=== PATIENT | female | born 1950 | race Caucasian/White ===

== ENCOUNTER 2018-10-19 17:41 | Inpatient (IN) ==
--- NOTE | 2018-10-19 18:54 | ED ---
HPI General Chief Complaint: Psychiatric Symptoms Stated Complaint: psych eval/flagler Time Seen by Provider: 10/19/18 18:51 Source: patient Mode of arrival: ambulatory Limitations: no limitations History of Present Illness HPI Narrative: 68-year-old female with PMH of dementia presents the ED under Reed act for psychiatric evaluation. According to the Reed act the patient has become more confused and violent recently. There was an incident in the home and the called to have the patient Reed acted. On presentation the patient cannot remember the events of the day. She denies suicidal or homicidal ideation. She denies any somatic complaints. She endorses a history of depression for "many many years." She states that her helps her with her medications. She is a current smoker. She denies alcohol or illicit drug use. Related Data Home Medications Medication Instructions Recorded Confirmed levothyroxine 88 mcg PO DAILY 10/19/18 10/19/18 lisinopril 10 mg PO DAILY 10/19/18 10/19/18 pantoprazole 40 mg PO DAILY 10/19/18 10/19/18 paroxetine HCl 40 mg PO DAILY 10/19/18 10/19/18 Allergies Allergy/AdvReac Type Severity Reaction Status Date / Time No Known Allergies Allergy Verified 10/19/18 18:42 Review of Systems ROS: all other systems reviewed are negative [facility] Medical History Medical History Anxiety (Acute) Depression (Acute) H/O: hysterectomy (Acute) Social History Social History Substance History: No History of Abuse Second Hand Smoke Exposure: Yes Smoking Status: Current every day smoker Tobacco Type: Cigarettes How Often Do You Have a Drink Containing Alcohol: Monthly or less Recent Travel in [facility] within the Last 8 Weeks: No Recent Out of Country Travel within the Last 8 Weeks: No Immunization History Tetanus Immunization: <5 Years Exam Narrative Exam Narrative: GENERAL: Well-nourished, well-developed white female no acute distress. SKIN: Focused skin assessment warm/dry. HEAD: Atraumatic. Normocephalic. EYES: Pupils equal and round. No scleral icterus. No injection or drainage. ENT: No nasal bleeding or discharge. Mucous membranes pink and moist. NECK: Trachea midline. No JVD. CARDIOVASCULAR: Regular rate and rhythm. No murmur appreciated. RESPIRATORY: No accessory muscle use. Clear to auscultation. Breath sounds equal bilaterally. GASTROINTESTINAL: Abdomen soft, non-tender, nondistended. Hepatic and splenic margins not palpable. MUSCULOSKELETAL: No obvious deformities. No clubbing. No cyanosis. No edema. NEUROLOGICAL: Awake and alert. No obvious cranial nerve deficits. Motor grossly within normal limits. Normal speech. PSYCHIATRIC: Calm and cooperative. Course Initial Documented Vital Signs Temperature 97.4 F L 10/19/18 17:58 Pulse Rate 75 10/19/18 17:58 Respiratory Rate 18 10/19/18 17:58 Blood Pressure 131/72 10/19/18 17:58 Pulse Oximetry 98 10/19/18 17:58 Last Documented Vital Signs Temperature 98.6 F 10/19/18 18:41 Pulse Rate 76 10/19/18 18:41 Respiratory Rate 18 10/19/18 18:41 Blood Pressure 129/77 10/19/18 18:41 Pulse Oximetry 100 10/19/18 18:[address] [facility] Narrative Medical decision making narrative: 68-year-old female with PMH of dementia presents the ED under Reed act for psychiatric evaluation. According to the Reed act the patient has become more confused and violent recently. There was an incident in the home and the called to have the patient Reed acted. On presentation the patient cannot remember the events of the day. She denies suicidal or homicidal ideation. She denies any somatic complaints. Vitals reviewed. Physical exams unremarkable. Lab work without any acute abnormalities. Tox screen positive for barbiturates and benzodiazepines. The patient is medically cleared for psychiatric evaluation. Medical Screen Exam Complete: Yes Emergency Medical Condition: Yes Differential Diagnosis Differential Diagnosis: Adjustment disorder versus anxiety versus bipolar versus depression versus dementia versus electrolyte disorder versus mood disorder versus other Lab Data Result diagrams: 10/19/18 18:05 10/19/18 18:05 Lab Results 10/19/18 10/19/18 10/19/18 Range/Units 18:05 18:05 19:20 WBC 8.5 (4.0-11.0) th/mm3 RBC 5.79 H (4.00-5.30) mil/mm3 Hgb 13.6 (11.6-15.3) gm/dL Hct 43.7 (35.0-46.0) % MCV 75.4 L (80.0-100.0) fL MCH 23.5 L (27.0-34.0) pg MCHC 31.1 L (32.0-36.0) % RDW 19.6 H (11.6-17.2) % Plt Count 452 H (150-450) th/mm3 MPV 8.2 (7.0-11.0) fL Neut % (Auto) 54.3 (16.0-70.0) % Lymph % (Auto) 33.4 (9.0-44.0) % [place] % (Auto) 7.6 (0.0-8.0) % Eos % (Auto) 3.5 (0.0-4.0) % Baso % (Auto) 1.2 (0.0-2.0) % Neut # (Auto) 4.6 (1.8-7.7) th/mm3 Lymph # (Auto) 2.8 (1.0-4.8) th/mm3 [place] # (Auto) 0.6 (0.0-0.9) th/mm3 Eos # (Auto) 0.3 (0.0-0.4) th/mm3 Baso # (Auto) 0.1 (0.0-0.2) th/mm3 WBC Differential . Differential Comment Auto diff final Sodium 136 (136-145) meq/L Potassium 4.2 (3.5-5.1) meq/L Chloride 105 (98-107) meq/L Carbon Dioxide 25.3 (21.0-32.0) meq/L Anion Gap 6 (5-15) meq/L BUN 7 (7-18) mg/dL Creatinine 0.80 (0.50-1.00) mg/dL Estimated GFR 72 L (>89) mL/min Random Glucose 124 H (74-106) mg/dL Calcium 9.7 (8.5-10.1) mg/dL Magnesium 2.3 (1.5-2.5) mg/dL Total Bilirubin 0.2 (0.2-1.0) mg/dL AST 24 (15-37) U/L ALT 31 (10-53) U/L Alkaline Phosphatase 135 H (45-117) U/L Total Protein 8.2 (6.4-8.2) g/dL Albumin 4.1 (3.4-5.0) g/dL TSH 2.920 (0.358-3.740) uIU/mL Urine Color (Yellw/Straw) Urine Clarity (Clear) Urine pH (5.0-8.5) Ur Specific [place] (1.002-1.035) Urine Protein (Neg-Trace) mg/dL Urine Glucose (UA) (Negative) mg/dL Urine Ketones (Negative) mg/dL Urine Occult Blood (Negative) Urine Nitrate (Negative) Urine Bilirubin (Negative) Urine Urobilinogen (Less than 2) mg/dL Ur Leukocyte Esterase (Negative) Urine WBC (0-5) /hpf Ur Squamous Epith Cells (0-5) /hpf Urine Bacteria (None) /hpf Urine Mucus (Occasional) /lpf Micro UA Comment Ur Microscopic Review Urine Culture Comments Urine Opiates Screen Neg (Neg) Ur Barbiturates Screen Pos H (Neg) Ur Amphetamines Screen Neg (Neg) U Benzodiazepines Scrn Pos H (Neg) Urine Cocaine Screen Neg (Neg) U Cannabinoids Screen Neg (Neg) Serum Alcohol Less than 3 (0-5) mg/dL 10/19/18 Range/Units 19:20 WBC (4.0-11.0) th/mm3 RBC (4.00-5.30) mil/mm3 Hgb (11.6-15.3) gm/dL Hct (35.0-46.0) % MCV (80.0-100.0) fL MCH (27.0-34.0) pg MCHC (32.0-36.0) % RDW (11.6-17.2) % Plt Count (150-450) th/mm3 MPV (7.0-11.0) fL Neut % (Auto) (16.0-70.0) % Lymph % (Auto) (9.0-44.0) % [place] % (Auto) (0.0-8.0) % Eos % (Auto) (0.0-4.0) % Baso % (Auto) (0.0-2.0) % Neut # (Auto) (1.8-7.7) th/mm3 Lymph # (Auto) (1.0-4.8) th/mm3 [place] # (Auto) (0.0-0.9) th/mm3 Eos # (Auto) (0.0-0.4) th/mm3 Baso # (Auto) (0.0-0.2) th/mm3 WBC Differential Differential Comment Sodium (136-145) meq/L Potassium (3.5-5.1) meq/L Chloride (98-107) meq/L Carbon Dioxide (21.0-32.0) meq/L Anion Gap (5-15) meq/L BUN (7-18) mg/dL Creatinine (0.50-1.00) mg/dL Estimated GFR (>89) mL/min Random Glucose (74-106) mg/dL Calcium (8.5-10.1) mg/dL Magnesium (1.5-2.5) mg/dL Total Bilirubin (0.2-1.0) mg/dL AST (15-37) U/L ALT (10-53) U/L Alkaline Phosphatase (45-117) U/L Total Protein (6.4-8.2) g/dL Albumin (3.4-5.0) g/dL TSH (0.358-3.740) uIU/mL Urine Color Straw (Yellw/Straw) Urine Clarity Clear (Clear) Urine pH 6.0 (5.0-8.5) Ur Specific [place] 1.011 (1.002-1.035) Urine Protein Negative (Neg-Trace) mg/dL Urine Glucose (UA) Negative (Negative) mg/dL Urine Ketones Negative (Negative) mg/dL Urine Occult Blood Negative (Negative) Urine Nitrate Negative (Negative) Urine Bilirubin Negative (Negative) Urine Urobilinogen Less than 2 (Less than 2) mg/dL Ur Leukocyte Esterase Trace H (Negative) Urine WBC 2 (0-5) /hpf Ur Squamous Epith Cells <1 (0-5) /hpf Urine Bacteria Rare H (None) /hpf Urine Mucus Few H (Occasional) /lpf Micro UA Comment Culture not ind Ur Microscopic Review Not Reportable Urine Culture Comments Culture not ind Urine Opiates Screen (Neg) Ur Barbiturates Screen (Neg) Ur Amphetamines Screen (Neg) U Benzodiazepines Scrn (Neg) Urine Cocaine Screen (Neg) U Cannabinoids Screen (Neg) Serum Alcohol (0-5) mg/dL Discharge Plan Discharge Disposition Patient Disposition: 30 Still Patient Physicians Team ED Provider: Jorge Saavedra ED Midlevel Provider: Sakshi Koo Primary Care Provider: Dennis Kaur Other Providers: [facility],Insurance Rxs /Orders / Referrals /Forms Prescriptions: No Action levothyroxine 88 mcg Tablet 88 mcg PO DAILY RF: 0 pantoprazole 40 mg Tablet,Delayed Release (Dr/Ec) 40 mg PO DAILY RF: 0 lisinopril 10 mg Tablet 10 mg PO DAILY RF: 0 paroxetine HCl 40 mg Tablet 40 mg PO DAILY RF: 0 Discharge Interventions Interventions: Vital Signs Last Done: 10/19/18 18:41 Status ED Status: Medically Cleared
[2018-10-19 19:14] LABS: Baso # (Auto) 0.1 th/mm3 (0.0-0.2); Baso % (Auto) 1.2 % (0.0-2.0); Eos # (Auto) 0.3 th/mm3 (0.0-0.4); Eos % (Auto) 3.5 % (0.0-4.0); Hematocrit 43.7 % (35.0-46.0); Hemoglobin 13.6 gm/dL (11.6-15.3); Lymph # (Auto) 2.8 th/mm3 (1.0-4.8); Lymph % (Auto) 33.4 % (9.0-44.0); Mean Corpuscular HGB Conc 31.1 % (32.0-36.0); Mean Corpuscular Hemoglobin 23.5 pg (27.0-34.0); Mean Corpuscular Volume 75.4 fL (80.0-100.0); Mean Platelet Volume 8.2 fL (7.0-11.0); Mono # (Auto) 0.6 th/mm3 (0.0-0.9); Mono % (Auto) 7.6 % (0.0-8.0); Neut # (Auto) 4.6 th/mm3 (1.8-7.7); Neut % (Auto) 54.3 % (16.0-70.0); Platelet Count 452 th/mm3 (150-450); Red Blood Count 5.79 mil/mm3 (4.00-5.30); Red Cell Distribution Width 19.6 % (11.6-17.2); White Blood Count 8.5 th/mm3 (4.0-11.0)
[2018-10-19 20:09] LABS: Alanine Aminotransferase 31 U/L (10-53); Albumin 4.1 g/dL (3.4-5.0); Anion Gap 6 meq/L (5-15); Aspartate Aminotransferase 24 U/L (15-37); Blood Urea Nitrogen 7 mg/dL (7-18); Calcium 9.7 mg/dL (8.5-10.1); Carbon Dioxide 25.3 meq/L (21.0-32.0); Chloride 105 meq/L (98-107); Glomerular Filtration Rate 72 mL/min (>89); Glucose,Random 124 mg/dL (74-106); Magnesium 2.3 mg/dL (1.5-2.5); Potassium 4.2 meq/L (3.5-5.1); Sodium 136 meq/L (136-145)
[2018-10-19 20:10] LABS: Bacteria,Urine Rare /hpf; Bilirubin,Urine Negative (Negative); Clarity,Urine Clear (Clear); Color,Urine Straw (Yellw/Straw); Glucose,Urine (UA) Negative (Negative); Leukocyte Esterase,Urine Trace (Negative); Mucus,Urine Few /lpf (Occasional); Nitrite,Urine Negative (Negative); Specific Gravity,Urine 1.011 (1.002-1.035); Squamous Epithelial Cell,Urine <1 /hpf (0-5)
[2018-10-19 20:18] LABS: Amphetamine Screen,Urine Neg (Neg); Barbiturate Screen,Urine Pos (Neg); Cannabinoid Screen,Urine Neg (Neg); Cocaine Screen,Urine Neg (Neg)
[2018-10-19 20:19] LABS: Alkaline Phosphatase 135 U/L (45-117); Total Protein 8.2 g/dL (6.4-8.2)
[2018-10-19 20:21] LABS: Opiate Screen,Urine Neg (Neg)
[2018-10-19] MEDS ORDERED: Aluminum/Magnesium/Simethacone Susp 30 ML UDC PO PRN ×2 (23:01→23:02)
[2018-10-19] MEDS ORDERED: LORazepam 0.5 MG Tablet PO PRN (23:02)
[2018-10-20] MEDS ORDERED: glipiZIDE 10 MG Tablet PO SCH (08:00)
[2018-10-20 11:08] LABS: Calcium 8.8 mg/dL (8.5-10.1); Carbon Dioxide 29.2 meq/L (21.0-32.0); Potassium 4.4 meq/L (3.5-5.1)
[2018-10-20 11:12] LABS: Chol/HDL Ratio 5.52 Ratio; HDL Cholesterol 29.3 mg/dL (40.0-60.0)
[2018-10-20 11:45] LABS: Hemoglobin A1c 7.7 % (4.3-6.0)
--- NOTE | 2018-10-20 15:00 | P.HPPSY ---
Provisional Diagnosis Admission Date: October 19, 2018 21:59 [place] I.: Alzheimer's disease with early onset with behavioral disturbances Competence Certification of Person's Competence To Provide Express and Informed Consent I have personally examined Staci Osei, a person being served at [facility] on, October 20, 2018 1451. Express and informed consent means consent voluntarily given in writing, by a competent person, after sufficient explanation and disclosure of the subject matter involved to enable the person to make a knowing and willful decision without any element of force, fraud, deceit, duress, or other form of constraint or coercion. This person is 18 years of age or older, is not now known to be incompetent to consent to treatment with a guardian advocate, and does not have a health care surrogate or proxy currently making medical treatment decisions. I have found this person to be one of the following: [] Competent to provide express and informed consent, as defined above, for voluntary admission to this facility and is competent to provide express and informed consent for treatment. He/she has the consistent capacity to make well reasoned, willful, and knowing decisions concerning his or her medical or mental health treatment. The person fully and consistently understands the purpose of the admission for examination/placement and is fully capable of personally exercising all rights assured [place]xxx] Incompetent to provide express and informed consent to voluntary admission , and this is incompetent to provide express and informed consent to treatment. The person must be transferred to involuntary status and a petition for a guardian advocate filed with the Circuit Court. [] Refusing to provide express and informed consent to voluntary admission but is competent to provide express and informed consent for treatment. The person must be discharged or transferred to involuntary status. Form shall be completed within 24 hours of a person's arrival at the receiving facility and filed in the clinical record of each person: 1. Admitted on a voluntary basis 2. Permitted to provide express and informed consent to his/her own treatment 3. Allowed to transfer from involuntary to voluntary status 4. Prior to permitting a person to consent to his or her own treatment after having been previously found incompetent to consent to treatment. History of Present Illness Capacity: Lacks capacity History of Present Illness: Patient is 68-year-old white female comes for under Reed act to the [facility]'s office dated 10/19/2018 at 1552 hrs. The document reviewed essentially stating female has dementia that is progressing rapidly which is causing anger or frustration that leads to her physically acting out towards her and nurse/family female also has depression and anxiety with that she does not know if when she is taken medication or not. Patient was seen screen in the ED urine toxicology positive for barbiturates and benzodiazepines. At the present time patient sitting quietly in her room nurse Rylee and medical student Parveen present throughout session patient is calm the somewhat withdrawn from us with very poor eye contact she is diffusely confused as to place time and situation though she knows she is in a hospital but does not know where. She does not know of the day the date or the year. She states she lives with her and appears she does not have any children with her does have an adult daughter. She states she feels depressed. Though she does denies suicidality voices or visions at this time. Denies alcohol or drug use. Does acknowledge seeing a psychiatrist in the past but is not seeing one now. She does acknowledge some vague past inpatient psychiatric care. At this time patient meets criteria for further inpatient psychiatric hospitalization under the Reed act older first opinion request second opinion. Therefore she does not have capacity I will ask for healthcare surrogate and guardian advocate. We will continue medications as per the med reconciliation. We will have a hospice consult with us. We need to meet with patient's family to discuss possible placement issues. - Inpatient Certification I certify that the inpatient services were ordered in accordance with Medicare regulations governing the order. This includes certification that hospital inpatient services are reasonable and necessary and in the case of services not specified as inpatient-only under 42 CFR 419.22(n), that they are appropriately provided as inpatient services in accordance to with the 2-midnight benchmark under 43 CFR 412.3(e) I certify that inpatient psychiatric hospital services are medically necessary. Evaluation and treatment and/or diagnostic testing are expected to improve the patient's condition. The patient needs on a daily basis, active treatment furnished directly by or requiring the supervision of inpatient psychiatric facility personnel. Estimated Total Length of Stay (Days): 7 Plans for Post Hospital Care: Not yet determined Review of Systems unobtainable due to mental status PMFSH - History History Provided By: Patient - Medical / Surgical Hx Neg / Unobtainable Medical Problems Denied: Unable to Obtain - Medical History Medical History: Medical History (Last Reviewed 10/20/18 @ 14:56 by Maximus Medrano MD) Anxiety Depression H/O: hysterectomy - Social History I have reviewed the patient's Social History: Yes - Tobacco History Second Hand Smoke Exposure: Yes Tobacco Use In Past 30 Days: Yes Smoking Status: Current every day smoker Tobacco Type: Cigarettes - Alcohol History How Often Do You Have a Drink Containing Alcohol: Monthly or less - Substance Use History Substance History: No History of Abuse - Travel History Recent Travel in the [place] Within the Last 8 Weeks: No Recent Travel Out of the Country Within the Last 8 Weeks: No - Immunization History Tetanus Immunization: <5 Years Hx Influenza Vaccine This Season: Yes Quality Measures - Psychiatric History Psychological trauma history: Patient denies though there may be some difficulty with her confusion Violence risk to others in the last 6 months: Patient showed increased violence at home against her and others Violence risk to self in the last 6 months: Patient denies suicidality - Substance Abuse History Drug or alcohol use in the past 12 months: Patient denies - Patient Strengths Patient's strengths (minimum of 2): Patient verbal cooperative able [place] healthcare Medications and Allergies Active Medications: Active Medications Acetaminophen (Tylenol) 650 mg PO Q4H PRN PRN Reason: PAIN 1-5/ TEMP > 101 Al Hydrox/Mg Hydrox/Simethicone (Mag-Al Plus Susp Liq) 30 ml PO Q6H PRN PRN Reason: DYSPEPSIA Al Hydrox/Mg Hydrox/Simethicone (Mag-Al Plus Susp Liq) 30 ml PO Q6H PRN PRN Reason: DYSPEPSIA Al Hydroxide/Mg Hydroxide (Milk Of Magnesia Liq) 30 ml PO Q24H PRN PRN Reason: CONSTIPATION Al Hydroxide/Mg Hydroxide (Milk Of Magnesia Liq) 30 ml PO Q12H PRN PRN Reason: Mild Constipation Diphenhydramine HCl (Benadryl) 50 mg PO HS PRN PRN Reason: INSOMNIA Fluconazole (Diflucan) 100 mg PO DAILY NICK Glipizide (Glucotrol) 10 mg PO BIDAC NICK Last Admin: 10/20/18 08:35 Dose: 10 mg Glipizide (Glucotrol) 10 mg PO BID NICK Hydroxyzine HCl (Atarax) 50 mg PO Q6H PRN PRN Reason: ANXIETY Metformin HCl (Glucophage) 500 mg PO TID [facility] Last Admin: 10/20/18 13:17 Dose: 500 mg Metformin HCl (Glucophage) 500 mg PO TID [facility] Nicotine (Habitrol 21 Mg Patch.24 Hr) 1 patch T-DERMAL DAILY [facility] Last Admin: 10/20/18 08:35 Dose: 1 patch Non-Formulary Medication (Alprazolam [Xanax]) 0.5 mg PO TID PRN PRN Reason: Anxiety Pantoprazole Sodium (Protonix) 40 mg PO DAILY [facility] Last Admin: 10/20/18 08:35 Dose: 40 mg Pantoprazole Sodium (Protonix) 40 mg PO DAILY [facility] Patch Removal (Remove Old Patch) 1 each T-DERMAL HS [facility] Last Admin: 10/19/18 23:00 Dose: 1 each Allergies Allergy/AdvReac Type Severity Reaction Status Date / Time No Known Allergies Allergy Verified 10/19/18 18:42 Home Medications Medication Instructions Recorded Confirmed Type alprazolam [Xanax] 0.5 mg PO TID PRN 10/19/18 10/19/18 History fluconazole [Diflucan] 100 mg PO DAILY MDD 10 DAYS 10/19/18 10/19/18 History glipizide 10 mg PO BID 10/19/18 10/19/18 History metformin 500 mg PO TID 10/19/18 10/19/18 History pantoprazole 40 mg PO DAILY 10/19/18 10/19/18 History Results - Labs CBC & Chem 7: 10/19/18 18:05 10/20/18 08:39 Labs: Laboratory Results - last 24 hr 10/19/18 10/19/18 10/19/18 18:05 18:05 19:20 WBC 8.5 RBC 5.79 H Hgb 13.6 Hct 43.7 MCV 75.4 L MCH 23.5 L MCHC 31.1 L RDW 19.6 H Plt Count 452 H MPV 8.2 Neut % (Auto) 54.3 Lymph % (Auto) 33.4 [place] % (Auto) 7.6 Eos % (Auto) 3.5 Baso % (Auto) 1.2 Neut # (Auto) 4.6 Lymph # (Auto) 2.8 [place] # (Auto) 0.6 Eos # (Auto) 0.3 Baso # (Auto) 0.1 WBC Differential . Differential Comment Auto diff final Sodium 136 Potassium 4.2 Chloride 105 Carbon Dioxide 25.3 Anion Gap 6 BUN 7 Creatinine 0.80 Estimated GFR 72 L Random Glucose 124 H Hemoglobin A1c Calcium 9.7 Magnesium 2.3 Total Bilirubin 0.2 AST 24 ALT 31 Alkaline Phosphatase 135 H Total Protein 8.2 Albumin 4.1 Triglycerides Cholesterol LDL Cholesterol, Calc HDL Cholesterol Cholesterol/HDL Ratio TSH 2.920 Urine Color Urine Clarity Urine pH Ur Specific [place] Urine Protein Urine Glucose (UA) Urine Ketones Urine Occult Blood Urine Nitrate Urine Bilirubin Urine Urobilinogen Ur Leukocyte Esterase Urine WBC Ur Squamous Epith Cells Urine Bacteria Urine Mucus Micro UA Comment Ur Microscopic Review Urine Culture Comments Urine Opiates Screen Neg Ur Barbiturates Screen Pos H Ur Amphetamines Screen Neg U Benzodiazepines Scrn Pos H Urine Cocaine Screen Neg U Cannabinoids Screen Neg Serum Alcohol Less than 3 10/19/18 10/20/18 10/20/18 19:20 08:39 08:39 WBC RBC Hgb Hct MCV MCH MCHC RDW Plt Count MPV Neut % (Auto) Lymph % (Auto) [place] % (Auto) Eos % (Auto) Baso % (Auto) Neut # (Auto) Lymph # (Auto) [place] # (Auto) Eos # (Auto) Baso # (Auto) WBC Differential Differential Comment Sodium 142 Potassium 4.4 Chloride 106 Carbon Dioxide 29.2 Anion Gap 7 BUN 12 Creatinine 0.83 Estimated GFR 69 L Random Glucose 138 H Hemoglobin A1c 7.7 H Calcium 8.8 D Magnesium Total Bilirubin AST ALT Alkaline Phosphatase Total Protein Albumin Triglycerides 369 H Cholesterol 162 LDL Cholesterol, Calc 59 HDL Cholesterol 29.3 L Cholesterol/HDL Ratio 5.52 TSH Urine Color Straw Urine Clarity Clear Urine pH 6.0 Ur Specific [place] 1.011 Urine Protein Negative Urine Glucose (UA) Negative Urine Ketones Negative Urine Occult Blood Negative Urine Nitrate Negative Urine Bilirubin Negative Urine Urobilinogen Less than 2 Ur Leukocyte Esterase Trace H Urine WBC 2 Ur Squamous Epith Cells <1 Urine Bacteria Rare H Urine Mucus Few H Micro UA Comment Culture not ind Ur Microscopic Review Not Reportable Urine Culture Comments Culture not ind Urine Opiates Screen Ur Barbiturates Screen Ur Amphetamines Screen U Benzodiazepines Scrn Urine Cocaine Screen U Cannabinoids Screen Serum Alcohol Exam Vital signs: Vital Signs 10/19/18 17:58 10/19/18 18:02 10/19/18 18:41 Temperature 97.4 F L 97.4 F L 98.6 F Pulse Rate 75 75 76 Respiratory Rate 18 18 Blood Pressure 131/72 131/72 129/77 Pulse Oximetry 98 98 100 10/19/18 22:04 10/19/18 22:40 10/20/18 05:22 Temperature 98.1 F 98.3 F 97 F L Pulse Rate 83 76 65 Respiratory Rate 18 18 16 Blood Pressure 129/60 133/66 80/53 L Pulse Oximetry 97 92 L 91 L 10/20/18 12:12 Temperature Pulse Rate 73 Respiratory Rate Blood Pressure 153/63 H Pulse Oximetry Intake & Output 10/19/18 10/20/18 10/20/18 18:59 06:59 18:59 Weight 74.843 kg 158.8 kg Other: # Voids 2 Date of Last Bowel Movement 10/19/18 Weight On Admission 158.8 kg Narrative: Patient seen sitting quietly on the side of her bed she is in no acute distress , patient seen in no respiratory distress, no complaints of chest pain or abdominal pain. Patient moving all 4 extremities without difficulty Mental Status Examination Appearance: Disheveled Consciousness: Alert, Clouded (Mildly) Orientation: Person Motor Activity: Other (Patient sitting down unable to assess) Speech: Hesitant, Slow, Stuttering Language: Adequate Fund of Knowledge: Inadequate Attention and Concentration: Adequate (4) Memory: Impaired Mood: Sad (Restricted) Affect: Other (Decreased range and intensity) Thought Process & Associations: Loose associations Thought Content: Thought blocking Hallucination Type: None Delusion Type: Paranoid Suicidal Ideation: No (Mildly) Suicidal Plan: No Suicidal Intention: No Homicidal Ideation: No Homicidal Plan: No Homicidal Intention: No Insight: Poor Judgment: Poor Assessment and Plan - Assessment (1) Dementia 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 Patient at this time meets criteria for involuntary psychiatric hospitalization I will do first opinion request second opinion. I feel she does not have capacity thus I will ask for healthcare surrogate and guardian advocate. We will have hospitalist also consult with us Justification for Continued Inpatient Stay: At this time patient with decompensated placed on a lower level of care Discharge Planning: To be determined in conjunction with family Request Healthcare Surrogate/Guardian Advocate?: Yes
[2018-10-20] MEDS: glipiZIDE 10 MG Tablet PO SCH (16:13)
[2018-10-20] MEDS: Acetaminophen 325 MG Tablet PO PRN ×2 (16:17→20:58)
[2018-10-20] MEDS ORDERED: Dextrose 50% in Water 50 ML Vial IV.PUSH PRN (19:39)
[2018-10-20] MEDS: Insulin NovoLOG Aspart Correctional Sugar Inj SQ SCH (20:20)
[2018-10-20] MEDS: Aluminum/Magnesium/Simethacone Susp 30 ML UDC PO PRN (22:37)
[2018-10-21] MEDS: Acetaminophen 325 MG Tablet PO PRN (01:09)
[2018-10-21] MEDS: Insulin NovoLOG Aspart Correctional Sugar Inj SQ SCH ×4 (07:36→20:32)
[2018-10-21] MEDS: glipiZIDE 10 MG Tablet PO SCH ×2 (09:21→17:29)
[2018-10-21] MEDS: Fluconazole 100 MG Tablet PO SCH (09:21)
--- NOTE | 2018-10-21 12:58 | P.PNPSY ---
Subjective Remarks: This is a request for second opinion. Admission note was reviewed and I agree with the history. Patient was seen and case was discussed with nursing. Patient is alert and oriented x1. She is pleasant and cooperative with exam. She remains confused concerning her admission and history. She describes her mood today is "very depressed." She does deny suicidal or homicidal ideation intent or plan. Compliant with medications. No outbursts Mental Status Examination Appearance: Disheveled Consciousness: Alert, Clouded (Mildly) Orientation: Person Motor Activity: Other (Patient sitting down unable to assess) Speech: Hesitant, Slow, Stuttering Language: Adequate Fund of Knowledge: Inadequate Attention and Concentration: Easily distracted Memory: Impaired Mood: Sad (Restricted) Affect: Other (Decreased range and intensity) Thought Process & Associations: Loose associations Thought Content: Thought blocking Hallucination Type: None Delusion Type: Paranoid Suicidal Ideation: No (Mildly) Suicidal Plan: No Suicidal Intention: No Homicidal Ideation: No Homicidal Plan: No Homicidal Intention: No Insight: Poor Judgment: Poor Assessment and Plan - Assessment (1) Dementia in 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 Criteria include confusion and agitation before admission. Justification for Continued Inpatient Stay: Patient would decompensate in a less restrictive setting Request Healthcare Surrogate/Guardian Advocate?: Yes
--- NOTE | 2018-10-21 17:48 | P.CONIM ---
History of Present Illness Service: [facility] Consult date: 10/21/18 Reason for Consult: MEDICAL MANAGEMENT Primary Care Provider: Dennis Kaur MD Chief Complaint: headache/migraine/nausea History of Present Illness: This is a 68 years old female with past medical history of dementia, anxiety, depression, diabetes mellitus type 2 and history of hysterectomy who presented to the emergency room under Reed act to the [facility]'s office on 112. The document reported that she has a history of dementia which is rapidly progressing causing her anger and frustration that leads to her physical acting out towards her , and family. Urine screen for toxicology was positive for barbiturates and benzodiazepines. Patient was admitted in the psychiatric unit for evaluation and management. Medicine team is consulted for medical management Patient seen and examined sitting in the chair in the day room, complains of some nausea without vomiting. Patient states that he had a bowel movement this morning. Nurse reported patient has been complaining of migraine headache, and associated nausea. Patient denies any headache at this time. Patient denies any chest pain or shortness of breath, denies any abdominal pain, diarrhea or constipation. Patient denies any fever or chills. Review of Systems All other systems reviewed negative except as stated in HPI PMFSH - History History Provided By: Patient - Medical / Surgical Hx Neg / Unobtainable Medical Problems Denied: Unable to Obtain - Medical History Medical History: Medical History (Last Updated 10/21/18 @ 17:43 by ADRIA Leiva) Anxiety Depression H/O: hysterectomy Surgical history unknown - Family History Family History: Family History (Last Updated 10/21/18 @ 17:44 by ADRIA Leiva) Other Family history unknown - Social History I have reviewed the patient's Social History: Yes - Tobacco History Second Hand Smoke Exposure: Yes Tobacco Use In Past 30 Days: Yes Smoking Status: Current every day smoker Tobacco Type: Cigarettes - Alcohol History How Often Do You Have a Drink Containing Alcohol: Monthly or less - Substance Use History Substance History: No History of Abuse - Travel History Recent Travel in the [place] Within the Last 8 Weeks: No Recent Travel Out of the Country Within the Last 8 Weeks: No - Immunization History Tetanus Immunization: <5 Years Hx Influenza Vaccine This Season: Yes Medications and Allergies Active Medications: Active Medications Acetaminophen (Tylenol) 650 mg PO Q4H PRN PRN Reason: PAIN 1-5/ TEMP > 101 Last Admin: 10/21/18 01:09 Dose: 650 mg Al Hydrox/Mg Hydrox/Simethicone (Mag-Al Plus Susp Liq) 30 ml PO Q6H PRN PRN Reason: DYSPEPSIA Last Admin: 10/20/18 22:37 Dose: 30 ml Al Hydroxide/Mg Hydroxide (Milk Of Magnesia Liq) 30 ml PO Q12H PRN PRN Reason: Mild Constipation Alprazolam (Xanax) 0.5 mg PO TID PRN PRN Reason: ANXIETY Dextrose (D50w Vial) 50 ml IV.PUSH UNSCH PRN PRN Reason: PER HYPOGLYCEMIA PROTOCOL Diphenhydramine HCl (Benadryl) 50 mg PO HS PRN PRN Reason: INSOMNIA Fluconazole (Diflucan) 100 mg PO DAILY [facility] Last Admin: 10/21/18 09:21 Dose: 100 mg Glipizide (Glucotrol) 10 mg PO BIDAC [facility] Last Admin: 10/21/18 17:29 Dose: 10 mg Glucagon (Glucagon Inj) 1 mg OTHER PRN PRN PRN Reason: for Hypoglycemia Protocol Hydroxyzine HCl (Atarax) 50 mg PO Q6H PRN PRN Reason: ANXIETY Insulin Aspart (Novolog Insulin Correctional Sugar Inj) 0 unit SQ ACHS [facility]; Protocol Last Admin: 10/21/18 16:03 Dose: Not Given Metformin HCl (Glucophage) 500 mg PO TID [facility] Last Admin: 10/21/18 17:29 Dose: 500 mg Nicotine (Habitrol 21 Mg Patch.24 Hr) 1 patch T-DERMAL DAILY [facility] Last Admin: 10/21/18 09:22 Dose: 1 patch Ondansetron HCl (Zofran Odt) 4 mg PO Q6H PRN PRN Reason: NAUSEA Pantoprazole Sodium (Protonix) 40 mg PO DAILY [facility] Last Admin: 10/21/18 09:21 Dose: 40 mg Patch Removal (Remove Old Patch) 1 each T-DERMAL [facility] Last Admin: 10/20/18 20:23 Dose: 1 each Allergies Allergy/AdvReac Type Severity Reaction Status Date / Time No Known Allergies Allergy Verified 10/19/18 18:42 Home Medications Medication Instructions Recorded Confirmed Type alprazolam [Xanax] 0.5 mg PO TID PRN 10/19/18 10/19/18 History fluconazole [Diflucan] 100 mg PO DAILY MDD 10 DAYS 10/19/18 10/19/18 History glipizide 10 mg PO BID 10/19/18 10/19/18 History metformin 500 mg PO TID 10/19/18 10/19/18 History pantoprazole 40 mg PO DAILY 10/19/18 10/19/18 History Exam Vital signs: Vital Signs 10/20/18 18:25 10/21/18 05:56 10/21/18 16:29 Temperature 98.4 F 98.3 F 99.2 F Pulse Rate 91 H 89 92 H Respiratory Rate Blood Pressure 133/84 134/86 146/66 H Pulse Oximetry 95 93 L 92 L Intake & Output 10/20/18 10/21/18 10/21/18 18:59 06:59 18:59 Intake Total 360 / 360 460 / 460 960 / 960 Balance 360 / 360 460 / 460 960 / 960 Intake: Oral 360 / 360 960 / 960 Oral Supplement 360 / 360 100 / 100 Other: # Voids 3 Date of Last Bowel Movement 10/19/18 # Bowel Movements 0 Narrative: GENERAL: Well-developed, well-nourished, female in no apparent distress SKIN: Warm and dry. HEAD: Atraumatic. Normocephalic. EYES: Pupils equal and round. No scleral icterus. No injection or drainage. ENT: No nasal bleeding or discharge. Mucous membranes pink and moist. NECK: Trachea midline. No JVD. CARDIOVASCULAR: Regular rate and rhythm. RESPIRATORY: No accessory muscle use. Clear to auscultation. Breath sounds equal bilaterally. GASTROINTESTINAL: Abdomen soft, non-tender, nondistended. Hepatic and splenic margins not palpable. MUSCULOSKELETAL: Extremities without clubbing, cyanosis, or edema. No obvious deformities. NEUROLOGICAL: Awake and alert. No obvious cranial nerve deficits. Motor grossly within normal limits. Five out of 5 muscle strength in the arms and legs. Normal speech. PSYCHIATRIC: Flat mood and affect; insight and judgment poor Results - Labs CBC & Chem 7: 10/19/18 18:05 10/20/18 08:39 Labs: Laboratory Results - last 24 hr 10/20/18 10/21/18 10/21/18 20:13 11:11 16:02 POC Glucose 104 167 H 132 H Assessment and Plan - Assessment (1) Anxiety Code(s): F41.9 - Anxiety disorder, unspecified Status: Acute (2) Depression Code(s): F32.9 - Major depressive disorder, single episode, unspecified Status : Acute (3) Migraine headache Code(s): G43.909 - Migraine, unspecified, not intractable, without status migrainosus Status: Acute (4) Nausea Code(s): R11.0 - Nausea Status: Acute (5) Dementia in Alzheimer's disease with early onset with behavioral disturbance Code(s): G30.0 - Alzheimer's disease with early onset; F02.81 - Dementia in other diseases classified elsewhere with behavioral disturbance Status: Acute - Plan This is a 68 years old female with past medical history of dementia, anxiety, depression, diabetes mellitus type 2 and history of hysterectomy who presented to the emergency room under Reed act to the [facility]'s office on 112. The document reported that she has a history of dementia which is rapidly progressing causing her anger and frustration that leads to her physical acting out towards her , and family. Dementia with behavioral disturbance Anxiety Depression -Management by psychiatric team -on Xanax Diabetes mellitus type 2 Hemoglobin A1c 6 7.7 Continue home medication for glipizide and metformin Monitor fasting blood sugar with insulin sliding scale Migraine headache Continue Tylenol Monitor response Dyspepsia Nausea Nausea related to dyspepsia versus migraine headache Continue on Protonix Add Zofran as needed Monitor response Hypertriglyceridemia Likely related to uncontrolled diabetes Change diet to diabetic diet Blood sugar control -Start on TriCor Monitor lipids and LFT DVT prophylaxis: Patient ambulatory Code Status: Full code Discussed Condition With: Patient and nurse
[2018-10-22] MEDS: Acetaminophen 325 MG Tablet PO PRN ×3 (00:17→23:11)
[2018-10-22] MEDS: Aluminum/Magnesium/Simethacone Susp 30 ML UDC PO PRN (06:47)
--- NOTE | 2018-10-22 08:06 | P.PNPSY ---
Subjective Remarks: Reviewed electronic medical record and discussed with nursing staff. Rounded with MAN Guerrero. Patient is in her bed in the position. She is complaining of abdominal pain and a headache. She complained of nausea yesterday and was medicated with Zofran. Patient has IDDM. She is only taking in fluids. Placed a hospitalist consultation. Patient is quiet. Review of Systems All other systems reviewed negative except as stated in HPI Ears, Nose, Mouth, and Throat: Reports headache(s) (abd pain started on 10/21/18 , patient is a IDDM ) Gastrointestinal: Reports abdominal pain Mental Status Examination Appearance: Disheveled Consciousness: Alert, Clouded (Mildly) Orientation: Person Motor Activity: Other (Patient sitting down unable to assess) Speech: Hesitant, Slow, Stuttering Language: Adequate Fund of Knowledge: Inadequate Attention and Concentration: Easily distracted Memory: Impaired Mood: Sad (Restricted) Affect: Other (Decreased range and intensity) Thought Process & Associations: Loose associations Thought Content: Thought blocking Hallucination Type: None Delusion Type: Paranoid Suicidal Ideation: No (Mildly) Suicidal Plan: No Suicidal Intention: No Homicidal Ideation: No Homicidal Plan: No Homicidal Intention: No Insight: Poor Judgment: Poor Assessment and Plan - Assessment (1) Dementia in Alzheimer's disease with early onset with behavioral disturbance Code(s): G30.0 - Alzheimer's disease with early onset; F02.81 - Dementia in other diseases classified elsewhere with behavioral disturbance Status: Acute - Plan Plan: Continue with current treatment plan. Justification for Continued Inpatient Stay: Moving patient to a less restrictive environment may result in her decompensation. Request Healthcare Surrogate/Guardian Advocate?: Yes
[2018-10-22] MEDS: Insulin NovoLOG Aspart Correctional Sugar Inj SQ SCH ×4 (08:10→21:10)
[2018-10-22] MEDS: glipiZIDE 10 MG Tablet PO SCH ×2 (10:16→17:44)
[2018-10-22] MEDS: Fluconazole 100 MG Tablet PO SCH (10:16)
[2018-10-22] MEDS: Fenofibrate 48 MG Tablet PO SCH (10:17)
--- NOTE | 2018-10-22 16:40 | P.PNIM ---
Subjective Interval history: Follow-up for migraine headache, dyspepsia, nausea, dementia, anxiety, depression, and diabetes mellitus type 2. Patient seen and examined sitting in the dinner room, eating dinner without any complaints of nausea or vomiting. Patient denies any pain complain of some headache but nothing like a migraine. Patient denies any chest pain or shortness of breath, denies any fever or chills. Nurse reported no acute issues overnight. Physical Exam Vital signs: Vital Signs 10/22/18 05:29 Temperature 98.0 F Pulse Rate 77 Respiratory Rate 17 Blood Pressure 128/62 Pulse Oximetry 92 L Intake & Output 10/21/18 10/22/18 10/22/18 18:59 06:59 18:59 Intake Total 2039 Balance 2039 Intake: Oral 2039 Other: # Voids 4 3 Date of Last Bowel Movement 10/19/18 10/21/18 Narrative: GENERAL: Well-developed, well-nourished, female in no apparent distress SKIN: Warm and dry. HEAD: Atraumatic. Normocephalic. EYES: Pupils equal and round. No scleral icterus. No injection or drainage. ENT: No nasal bleeding or discharge. Mucous membranes pink and moist. NECK: Trachea midline. No JVD. CARDIOVASCULAR: Regular rate and rhythm. RESPIRATORY: No accessory muscle use. Clear to auscultation. Breath sounds equal bilaterally. GASTROINTESTINAL: Abdomen soft, non-tender, nondistended. Hepatic and splenic margins not palpable. MUSCULOSKELETAL: Extremities without clubbing, cyanosis, or edema. No obvious deformities. NEUROLOGICAL: Awake and alert. No obvious cranial nerve deficits. Motor grossly within normal limits. Five out of 5 muscle strength in the arms and legs. Normal speech. PSYCHIATRIC: Flat mood and affect; insight and judgment poor Results - Labs CBC & Chem 7: 10/19/18 18:05 10/20/18 08:39 Laboratory Results - last 24 hr 10/21/18 10/22/18 10/22/18 19:18 07:27 11:28 POC Glucose 174 H 161 H 180 H 10/22/18 16:09 POC Glucose 195 H Assessment and Plan - Assessment (1) Anxiety Code(s): F41.9 - Anxiety disorder, unspecified Status: Acute (2) Depression Code(s): F32.9 - Major depressive disorder, single episode, unspecified Status : Acute (3) Migraine headache Code(s): G43.909 - Migraine, unspecified, not intractable, without status migrainosus Status: Acute (4) Nausea Code(s): R11.0 - Nausea Status: Acute (5) Dementia in Alzheimer's disease with early onset with behavioral disturbance Code(s): G30.0 - Alzheimer's disease with early onset; F02.81 - Dementia in other diseases classified elsewhere with behavioral disturbance Status: Acute - Plan This is a 68 years old female with past medical history of dementia, anxiety, depression, diabetes mellitus type 2 and history of hysterectomy who presented to the emergency room under Reed act to the [facility]'s office on 1128. The document reported that she has a history of dementia which is rapidly progressing causing her anger and frustration that leads to her physical acting out towards her , and family. Dementia with behavioral disturbance Anxiety Depression -Toxicology positive for benzos and barbiturates -Management by psychiatric team -on Xanax - Diabetes mellitus type 2 Hemoglobin A1c 6 7.7 -Continue home medication for glipizide and metformin -Monitor fasting blood sugar with insulin sliding scale Migraine headache -Continue Tylenol -Monitor response -slight headache today relieved with Tylenol Dyspepsia Nausea -Nausea related to dyspepsia versus migraine headache -Continue on Protonix -Add Zofran as needed -Monitor response -No complaints of nausea or vomiting today Hypertriglyceridemia Likely related to uncontrolled diabetes Change diet to diabetic diet Blood sugar control -Start on TriCor -Monitor lipids and LFT DVT prophylaxis: Patient ambulatory Thank you for your call consultation, will continue to follow patient. Code Status: Full code Discussed Condition With: Patient and nurse
[2018-10-23] MEDS: ALPRAZolam 0.5 MG Tablet PO PRN ×2 (00:46→21:07)
[2018-10-23] MEDS: Insulin NovoLOG Aspart Correctional Sugar Inj SQ SCH ×4 (09:07→20:32)
[2018-10-23] MEDS: glipiZIDE 10 MG Tablet PO SCH ×2 (09:07→17:05)
[2018-10-23] MEDS: Fenofibrate 48 MG Tablet PO SCH (09:08)
[2018-10-23] MEDS: Fluconazole 100 MG Tablet PO SCH (09:08)
--- NOTE | 2018-10-23 11:13 | P.TTN ---
- Patient Problems Problems: 1. Discharge planning 2. Medication compliance 3. Knowledge deficit 4. Lack of coping skills - Progress Toward Goals Provider Present: Dr. Sabino Medrano Provider Input: 10/23/18: Patient still meets criteria. Nurse(s) Present: Yeimi CONWAY Nurse Input: 10/23/18: Isolates to her room, somatic complaints. Psychiatric Counselors Present: Hafsa David [facility] Psychiatric Therapist Input: 10/23/18: Will discuss safe discharge plan Group Spec/RT/OT/STONE Present: [place] Ayala, Salvatore Okeefe, OT Group Spec/RT/OT/STONE Input: 10/23/18: Pt arrived on the unit on : isolates to her room, refusing to participate in the group activities at this time. Encouragement will be given. - Documentation Teaching Recipient: Patient
--- NOTE | 2018-10-23 12:31 | P.PNPSY ---
Subjective Remarks: Patient seen in day room eating for lunch without difficulty patient seen with floor staff, chart reviewed, patient compliant medications. Patient continues diffusely confused but pleasant with me she has no complaints of nausea vomiting or abdominal pain, as mentioned as eating her lunch without difficulty. For now continue treatment Review of Systems All other systems reviewed negative except as stated in HPI Mental Status Examination Appearance: Disheveled Consciousness: Alert, Clouded (Mildly) Orientation: Person Motor Activity: Other (Patient sitting down unable to assess) Speech: Hesitant, Slow, Stuttering Language: Adequate Fund of Knowledge: Inadequate Attention and Concentration: Easily distracted Memory: Impaired Mood: Sad (Restricted) Affect: Other (Decreased range and intensity) Thought Process & Associations: Loose associations Thought Content: Thought blocking Hallucination Type: None Delusion Type: Paranoid Suicidal Ideation: No (Mildly) Suicidal Plan: No Suicidal Intention: No Homicidal Ideation: No Homicidal Plan: No Homicidal Intention: No Insight: Poor Judgment: Poor Assessment and Plan - Assessment (1) Dementia in Alzheimer's disease with early onset with behavioral disturbance Code(s): G30.0 - Alzheimer's disease with early onset; F02.81 - Dementia in other diseases classified elsewhere with behavioral disturbance Status: Acute - Plan Plan: Patient continues diffusely confused demented, today she is not complaining of nausea vomiting or abdominal pain, is eating her lunch well without difficulty Justification for Continued Inpatient Stay: At this time patient with decompensated placed a lower level of care Discharge Planning: To be determined Request Healthcare Surrogate/Guardian Advocate?: Yes
[2018-10-23] MEDS: Acetaminophen 325 MG Tablet PO PRN (20:28)
[2018-10-24] MEDS: Acetaminophen 325 MG Tablet PO PRN ×4 (01:39→21:24)
[2018-10-24] MEDS: Fenofibrate 48 MG Tablet PO SCH (09:18)
[2018-10-24] MEDS: glipiZIDE 10 MG Tablet PO SCH ×2 (09:18→16:41)
[2018-10-24] MEDS: Fluconazole 100 MG Tablet PO SCH (09:18)
[2018-10-24] MEDS: Insulin NovoLOG Aspart Correctional Sugar Inj SQ SCH ×4 (09:19→21:55)
--- NOTE | 2018-10-24 10:04 | P.PNPSY ---
Subjective Remarks: Patient is seen in day room with nurse Rylee, chart reviewed, patient compliant medication. Patient today complains of a little bit of mild stomachache though she did eat her breakfast without difficulty. She continues diffusely confused. With no behavioral problems. For now continue treatment Review of Systems All other systems reviewed negative except as stated in HPI Mental Status Examination Appearance: Disheveled Consciousness: Alert Orientation: Person Motor Activity: Other (Patient sitting down unable to assess) Speech: Hesitant, Slow, Stuttering Language: Adequate Fund of Knowledge: Inadequate Attention and Concentration: Easily distracted Memory: Impaired Mood: Sad (Restricted) Affect: Other (Decreased range and intensity) Thought Process & Associations: Loose associations Thought Content: Thought blocking Hallucination Type: None Delusion Type: Paranoid Suicidal Ideation: No (Mildly) Suicidal Plan: No Suicidal Intention: No Homicidal Ideation: No Homicidal Plan: No Homicidal Intention: No Insight: Poor Judgment: Poor Assessment and Plan - Assessment (1) Dementia in Alzheimer's disease with early onset with behavioral disturbance Code(s): G30.0 - Alzheimer's disease with early onset; F02.81 - Dementia in other diseases classified elsewhere with behavioral disturbance Status: Acute - Plan Plan: Patient remains demented confused, some vague abdominal nausea noted today. Compliant medication. For now continue treatment Justification for Continued Inpatient Stay: At this time patient with decompensated placed on a lower level of care Discharge Planning: To be determined Request Healthcare Surrogate/Guardian Advocate?: Yes
[2018-10-24] MEDS: ALPRAZolam 0.5 MG Tablet PO PRN (17:34)
[2018-10-25] MEDS: Acetaminophen 325 MG Tablet PO PRN ×2 (01:29→08:23)
[2018-10-25] MEDS: Fluconazole 100 MG Tablet PO SCH (08:23)
[2018-10-25] MEDS: glipiZIDE 10 MG Tablet PO SCH ×2 (08:23→17:38)
[2018-10-25] MEDS: Fenofibrate 48 MG Tablet PO SCH (08:24)
[2018-10-25] MEDS: Insulin NovoLOG Aspart Correctional Sugar Inj SQ SCH ×4 (08:27→21:39)
--- NOTE | 2018-10-25 13:07 | P.PNPSY ---
Subjective Remarks: Patient seen in day room with floor staff, chart reviewed, patient compliant medication, patient continues diffusely confused disoriented with intermittent but somewhat persistent complaints of nausea. She is able to acknowledge that she has had episodes of nausea for a number of years. I then talked to the patient's 's name is Bebeto at [phone] acknowledges increased issues related to her dementia anger and irritability. He states she has been on Paxil for a number of years without much success. Along with past use of benzodiazepines. I did discuss medications with him we will taper the Xanax. Will keep the Paxil on hold. We will start patient on Seroquel 25 mg at noon and 6 PM and 10 PM consider discharge within about 48 hours patient does not wish his home as soon as possible Review of Systems All other systems reviewed negative except as stated in HPI Mental Status Examination Appearance: Disheveled Consciousness: Alert Orientation: Person Motor Activity: Other (Patient sitting down unable to assess) Speech: Hesitant, Slow, Stuttering Language: Adequate Fund of Knowledge: Inadequate Attention and Concentration: Easily distracted Memory: Impaired Mood: Sad (Restricted) Affect: Other (Decreased range and intensity) Thought Process & Associations: Loose associations Thought Content: Thought blocking Hallucination Type: None Delusion Type: Paranoid Suicidal Ideation: No (Mildly) Suicidal Plan: No Suicidal Intention: No Homicidal Ideation: No Homicidal Plan: No Homicidal Intention: No Insight: Poor Judgment: Poor Assessment and Plan - Assessment (1) Dementia in Alzheimer's disease with early onset with behavioral disturbance Code(s): G30.0 - Alzheimer's disease with early onset; F02.81 - Dementia in other diseases classified elsewhere with behavioral disturbance Status: Acute - Plan Plan: Patient remains confused demented. He did discuss this with patient's . We will taper the Xanax, we will keep the Paxil on hold, start patient on Seroquel Justification for Continued Inpatient Stay: At this time patient with decompensated placed on a lower level of care Discharge Planning: Return home with Request Healthcare Surrogate/Guardian Advocate?: Yes
--- NOTE | 2018-10-25 14:28 | P.TTN ---
- Patient Problems Problems: 1. Discharge planning 2. Medication compliance 3. Knowledge deficit 4. Lack of coping skills - Progress Toward Goals Provider Present: Dr. Sabino Medrano Provider Input: 10/24/18: Per MD pt meets criteria, pt experiencing . 10/23/18: Patient still meets criteria. Nurse(s) Present: Yeimi CONWAY Nurse Input: 10/24/18: Per RN pt continues isolating sometimes but is med compliant. 10/23/18: Isolates to her room, somatic complaints. Psychiatric Counselors Present: Hafsa David [facility], Other Psychiatric Therapist Input: 10/24/18: Therapist working closely with fam. Pt to be linked to PCP and Possible home health. Judy Rodas [facility]. 10/23/18: Will discuss safe discharge plan Group Spec/RT/OT/STONE Present: [place] Ayala, Salvatore Okeefe, OT Group Spec/RT/OT/STONE Input: 10/24/18: Pt does not attends group despite encouragement. 10/23/18: Pt arrived on the unit on 10/19/18: isolates to her room, refusing to participate in the group activities at this time. Encouragement will be given. - Documentation Teaching Recipient: Patient
[2018-10-25] MEDS ORDERED: QUEtiapine 25 MG Tablet PO SCH (16:00)
[2018-10-25] MEDS: ALPRAZolam 0.5 MG Tablet PO PRN (22:02)
[2018-10-26] MEDS: Fenofibrate 48 MG Tablet PO SCH (09:43)
[2018-10-26] MEDS: glipiZIDE 10 MG Tablet PO SCH ×2 (09:43→17:27)
[2018-10-26] MEDS: Insulin NovoLOG Aspart Correctional Sugar Inj SQ SCH ×4 (09:43→20:25)
[2018-10-26] MEDS: Fluconazole 100 MG Tablet PO SCH (09:44)
--- NOTE | 2018-10-26 10:02 | P.PNPSY ---
Subjective Remarks: Patient seen in her room with floor staff, chart reviewed, patient continues diffusely confused with symptoms a vague complaints of nausea and abdominal discomfort. This is intermittently consistent. That predates the hospitalization. Patient was then discussed it and [facility] court. Make record charged continue the case for 2 weeks to arrange for further disposition with family Review of Systems All other systems reviewed negative except as stated in HPI Mental Status Examination Appearance: Disheveled Consciousness: Alert Orientation: Person Motor Activity: Other (Patient sitting down unable to assess) Speech: Hesitant, Slow, Stuttering Language: Adequate Fund of Knowledge: Inadequate Attention and Concentration: Easily distracted Memory: Impaired Mood: Sad (Restricted) Affect: Other (Decreased range and intensity) Thought Process & Associations: Loose associations Thought Content: Thought blocking Hallucination Type: None Delusion Type: Paranoid Suicidal Ideation: No (Mildly) Suicidal Plan: No Suicidal Intention: No Homicidal Ideation: No Homicidal Plan: No Homicidal Intention: No Insight: Poor Judgment: Poor Assessment and Plan - Assessment (1) Dementia in Alzheimer's disease with early onset with behavioral disturbance Code(s): G30.0 - Alzheimer's disease with early onset; F02.81 - Dementia in other diseases classified elsewhere with behavioral disturbance Status: Acute - Plan Plan: Patient remains confused disoriented though no significant behavioral problems, some intermittent complaints of nausea. For now continue treatment. Patient had her court date continued for [address] Justification for Continued Inpatient Stay: At this time patient with decompensated placed in a lower level of care Discharge Planning: To be determined possibly to return home with Request Healthcare Surrogate/Guardian Advocate?: Yes
[2018-10-26 18:01] VITALS: O2SAT 92
[2018-10-26] MEDS: ALPRAZolam 0.5 MG Tablet PO PRN (21:31)
[2018-10-27 05:54] VITALS: BP 111/64; PULSE 70; RESP 16; TEMP 98.1
[2018-10-27] MEDS: Insulin NovoLOG Aspart Correctional Sugar Inj SQ SCH ×2 (08:43→11:44)
[2018-10-27] MEDS: glipiZIDE 10 MG Tablet PO SCH (08:44)
[2018-10-27] MEDS: Fluconazole 100 MG Tablet PO SCH (08:44)
[2018-10-27] MEDS: Fenofibrate 48 MG Tablet PO SCH (08:44)
--- NOTE | 2018-10-27 11:13 | P.DCO ---
- Physical Therapy Order: Evaluate and treat - Occupational Therapy Order: Evaluate and treat - Home Health Nursing Order: Medical education, Signs/symptoms of disease process, Medication education-adverse effect, Nursing assessment with vital signs - Home Health Aide Order: To assist in: Bathing and personal care, electronic industrial controls mechanic and meal prep - Carbonizer Tester Order: To evaluate: Support services Order: To provide: Community services - Case Management Consult Case Management Consult-Home Health: Yes - Certification I have seen patient Staci Osei on 10/27/18. My clinical findings support the need for the requested home health care services because: Limited mobility due to disease progression, Medication compliance is questionable, Limited ability to care for self I certify that my clinical findings support that this patient is homebound because: Impaired cognitive ability/safety, Unsteady gait/balance, Unsafe to leave home unassisted
--- NOTE | 2018-10-27 11:19 | P.DSPSY ---
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 The document reviewed essentially stating female has dementia that is progressing rapidly which is causing anger or frustration that leads to her physically acting out towards her and nurse/family female also has depression and anxiety with that she does not know if when she is taken medication or not. Patient was seen screen in the ED urine toxicology positive for barbiturates and benzodiazepines. At the present time patient sitting quietly in her room nurse Rylee and medical student Parveen present throughout session patient is calm the somewhat withdrawn from us with very poor eye contact she is diffusely confused as to place time and situation though she knows she is in a hospital but does not know where. She does not know of the day the date or the year. She states she lives with her and appears she does not have any children with her does have an adult daughter. She states she feels depressed. Though she does denies suicidality voices or visions at this time. Denies alcohol or drug use. Does acknowledge seeing a psychiatrist in the past but is not seeing one now. She does acknowledge some vague past inpatient psychiatric care. At this time patient meets criteria for further inpatient psychiatric hospitalization under the Reed act older first opinion request second opinion. Therefore she does not have capacity I will ask for healthcare surrogate and guardian advocate. We will continue medications as per the med reconciliation. We will have a hospice consult with us. We need to meet with patient's family to discuss possible placement issues. Tobacco Use In Past 30 Days: Yes How Often Do You Have a Drink Containing Alcohol: Monthly or less Hospital Course: Patient's hospital course was uneventful, she was no significant behavior problems except for persistent intermittent complaints of nausea. These complaints seem to be chronic and markedly long-standing. Her cognitive deficits remain she remains somewhat diffusely confused and demented. However she has been compliant with medications has been no behavioral problems. Patient's does wish her to return home. At this time I feel patient has reached maximum benefit of this hospitalization should be discharged today to return home to make referral to home health care with case management and other services. - Discharge Discharge Date: 10/27/18 - Discharge Diagnosis (1) Dementia in Alzheimer's disease with early onset with behavioral disturbance Diagnosis: Principal Code(s): G30.0 - Alzheimer's disease with early onset; F02.81 - Dementia in other diseases classified elsewhere with behavioral disturbance Status: Acute Discharge Disposition: Home - Discharge Instructions Discharge Diet: Heart Healthy Diet Activities You Can Perform: Regular- No Restrictions - Discharge Time > 30 minutes Mental Status Examination Appearance: Disheveled Consciousness: Alert Orientation: Person Motor Activity: Other (Patient sitting down unable to assess) Speech: Hesitant, Slow, Stuttering Language: Adequate Fund of Knowledge: Inadequate Attention and Concentration: Easily distracted Memory: Impaired Mood: Sad (Restricted) Affect: Other (Decreased range and intensity) Thought Process & Associations: Loose associations Thought Content: Thought blocking Hallucination Type: None Delusion Type: Paranoid Suicidal Ideation: No (Mildly) Suicidal Plan: No Suicidal Intention: No Homicidal Ideation: No Homicidal Plan: No Homicidal Intention: No Insight: Poor Judgment: Poor Discharge/Advance Care Plan - Results Vital Signs: Last Vital Signs Temp 98.1 F 10/27/18 05:53 Pulse 70 10/27/18 05:53 Resp 16 10/27/18 05:53 BP 111/64 10/27/18 05:53 Pulse Ox 92 L 10/27/18 05:53 Lab Results: Abnormal Lab Results 10/26/18 10/26/18 16:06 20:14 POC Glucose 100 122 H Laboratory Results Hemoglobin A1c 7.7 % (4.3-6.0) H 10/20/18 08:39 Triglycerides 369 mg/dL (42-150) H 10/20/18 08:39 Cholesterol 162 mg/dL (120-200) 10/20/18 08:39 LDL Cholesterol, Calc 59 mg/dL (0-99) 10/20/18 08:39 HDL Cholesterol 29.3 mg/dL (40.0-60.0) L 10/20/18 08:39 TSH 2.920 uIU/mL (0.358-3.740) 10/19/18 18:05 Urine Culture Comments Culture not ind 10/19/18 19:20 Summary of Procedures: None done Pending Results: None - Medications Number of antipsychotic medications at discharge: 1 - Discharge Care Plan Goals to Promote Your Health: * To prevent worsening of your condition and complications * To maintain your health at the optimal level Directions to Meet Your Goals: Take your medications as prescribed Follow your dietary instruction Follow activity as directed Keep your appointments as scheduled Take your immunizations and boosters as scheduled If your symptoms worsen call your PCP, if no PCP go to Urgent Care Center or Emergency Room For 13/06 questions related to your inpatient stay or results of tests pending at discharge, please contact Dr. Maximus Medrano MD at Smoking is Dangerous to Your Health. Avoid second hand smoking
== END 2018-10-27 14:25 | disposition home or self-care (01) ==
LOC: NEPJ 17:41 → NEDA 21:59 → H250 22:28
PROVIDERS: ADMIT Psychiatry & Neurology Psychiatry; ATTEND Psychiatry & Neurology Psychiatry